=== PATIENT | male | born 1955 | race Caucasian/White ===

== ENCOUNTER 2016-09-17 21:46 | Inpatient (IN) | payer BC, MEDICARE ==
[~2016-09-17] VITALS: Ht 172.7 cm; Wt 104.1 kg
[2016-09-17 23:30] LABS: BASOPHILS 0.1 % (0.0-2.0); EOSINOPHILS 0.3 % (0-7); HEMATOCRIT 45.5 % (42.0-54.0); HEMOGLOBIN 15.4 g/dL (13.5-17.5); IMMATURE GRANULOCYTES 0.3 % (0-5); LYMPHOCYTES 13.9 % (15-50); MCH 30.4 pg (26.0-34.0); MCHC 33.8 g/dL (31.0-37.0); MCV 89.7 fL (80.0-100.0); MEAN PLATELET VOLUME 10.7 fL (7.4-10.4); MONOCYTES 12.8 % (2-11); NEUTROPHILS 72.6 % (40-80); RBC 5.07 10x6/uL (4.20-6.10); RDW 15.2 % (11.5-14.5); WBC 10.3 10x3/uL (4.8-10.8)
[2016-09-17 23:34] LABS: PLATELET COUNT 88 10x3/uL (130-400)
[2016-09-17 23:44] LABS: ALBUMIN 4.5 g/dL (3.4-5.0); BILIRUBIN - TOTAL 1.1 mg/dL (0.2-1.3); CALCIUM 10.4 mg/dL (8.5-10.1); CARBON DIOXIDE 28.3 mmol/L (21.0-32.0); CREATININE - SERUM 1.3 mg/dL (0.6-1.3); POTASSIUM - SERUM 4.3 mmol/L (3.5-5.1); PROTEIN - SERUM 8.6 g/dL (6.4-8.2)
[2016-09-18] MEDS ORDERED: REVATIO20 MG PO (03:34)
[2016-09-18] MEDS ORDERED: CELEXA10 MG PO (03:35)
[2016-09-18] MEDS ORDERED: DETROL LA4 MG PO (03:35)
[2016-09-18] MEDS ORDERED: PEPCID20 MG PO (03:37)
[2016-09-18] MEDS ORDERED: CHRONULAC30 ML PO (03:37)
[2016-09-18] MEDS ORDERED: PROTONIX20 MG PO (03:38)
[2016-09-18] MEDS ORDERED: ZOFRAN8 MG PO (03:38)
[2016-09-18 04:39] VITALS: BP 133/74
[2016-09-18 05:47] VITALS: BMI 32.0
--- NOTE | 2016-09-18 07:23 | NUR ---
PT LAYING DOWN IN BED SLEEPING NO S/S DISTRESS WILL CONT TO MONITOR.
[2016-09-18 08:00] VITALS: BP 110/72
[2016-09-18 11:25] LABS: APPEARANCE CLEAR (CLEAR); BILIRUBIN NEGATIVE (NEGATIVE); COLOR DK YELLOW (YELLOW); GLUCOSE 500 mg/dL (NEGATIVE); KETONE NEGATIVE (NEGATIVE); LEUKOCYTE ESTERASE TRACE (NEGATIVE); NITRITE NEGATIVE (NEGATIVE); PROTEIN NEGATIVE (NEGATIVE); UROBILINOGEN NORMAL (NORMAL)
[2016-09-18 11:31] LABS: BACTERIA FEW /hpf (NONE SEEN); EPITHELIAL CELLS 0-5 /hpf (0-5); RED CELLS - URINE OCC /hpf (0-5); WHITE CELLS - URINE 0-5 /hpf (0-5)
[2016-09-18 12:00] VITALS: BP 115/61
[2016-09-18 12:41] VITALS: Ht 172.7 cm; Wt 104.1 kg
--- NOTE | 2016-09-18 15:36 | NUR ---
PT WITH DARK BLOODY STOOL. ORDERED STOOL CULTURE AND SENT TO THE LAB TO CONFIRM. PT WITH SEVERE ABDOMINAL PAIN.
--- NOTE | 2016-09-18 15:49 | NUR ---
PT STOOL POSITIVE FOR BLOOD PAGED DR GARRISON.
--- NOTE | 2016-09-18 15:54 | NUR ---
DR GARRISON CALLED BACK AND I TOLD HIM ABOUT POSITIVE OCCULT STOOL. SAID HE WOULD BE UP TO SEE PT SOON.
[2016-09-18 16:27] VITALS: BP 136/98
--- NOTE | 2016-09-18 18:16 | NUR ---
PT SITTING UP IN BED DENIES NEEDS WILL CONT TO MONITOR.
[2016-09-18 18:27] LABS: BASOPHILS 0 % (0.0-2.0); EOSINOPHILS 0 % (0-7); HEMATOCRIT 38.5 % (42.0-54.0); HEMOGLOBIN 12.7 g/dL (13.5-17.5); IMMATURE GRANULOCYTES 0.3 % (0-5); MCH 29.7 pg (26.0-34.0); MCV 90.2 fL (80.0-100.0); MEAN PLATELET VOLUME 10.3 fL (7.4-10.4); MONOCYTES 5.1 % (2-11); NEUTROPHILS 88.6 % (40-80); RBC 4.27 10x6/uL (4.20-6.10); RDW 14.9 % (11.5-14.5)
--- NOTE | 2016-09-18 18:27 | CN ---
PATIENT NAME:AIXA LEGGETT JR MEDICAL RECORD: [id number] : 59 LOCATION:[facility] D.[id number] ADMIT DATE: 09/18/16 ACCOUNT: [id number] CONSULTING PHYSICIAN: CASEY ROGEL MD REFERRING PHYSICIAN: SULEMA GARRISON MD DATE OF CONSULTATION: 09/18/2016 Surgical consultation SURGEON: Casey Rogel MD REASON FOR CONSULTATION: Abdominal pain. HISTORY OF PRESENT ILLNESS: Mr. Leggett is a 61-year-old male who was admitted to the hospital last night for abdominal pain this morning. The patient tells me that he has had crampy and diffuse abdominal pain and body aches that lasts 3-4 days. He feels very dehydrated. The pain is associated with nausea and vomiting. He has tried to stay hydrated by drinking Gatorade and ____ staff nausea and vomiting. He has a history previously of episodes of diverticulitis. He had a long hepatitis C with cirrhosis. Currently, the patient's pain is markedly improved with IV fluid and IV narcotics. His nausea had improved. PAST MEDICAL HISTORY: Diverticulitis, hepatitis C, cirrhosis, history of stroke, history of hypothyroidism, and hypertension. Depression and anxiety. PAST SURGICAL HISTORY: Rotator cuff surgery, gallbladder surgery, and left thumb surgery. SOCIAL HISTORY: Former smoker. He is a nondrinker. He smokes marijuana occasionally. FAMILY HISTORY: No significant family history. ALLERGIES: MORPHINE. HOME MEDICATIONS: ____, Celexa, lactulose, Protonix, Zofran, Pepcid and Detrol-LA. REVIEW OF SYSTEMS: A 12-point review of systems was obtained, pertinent positive and negative as per the HPI. PHYSICAL EXAMINATION: VITAL SIGNS: Temperature 97.7, heart rate 48, respiratory rate 17, blood pressure 110/72, saturating 92% on 2 liters. GENERAL: This is an obese male in mild distress. EYES: Extraocular muscles are intact. EAR, NOSE, AND THROAT: Normal dentition. Mucous membranes moist. CARDIOVASCULAR: Normal sinus rhythm. PULMONARY: Clear auscultation bilaterally. ABDOMEN: Soft and mildly distended. No guarding. No rebound. No peritoneal signs. He has got some diffuse abdominal tenderness to palpation. SKIN: Warm and dry with normal turgor. EXTREMITIES: He has got lower extremity edema. NEUROLOGIC: GCS is 15 with no focal deficits. CONSULT REPORT [id number] AIXA LEGGETT JR LABORATORY DATA: Please see electronic medical record for full set of laboratory values. Labs were reviewed. IMAGING: CT abdomen and pelvis that was personally reviewed. The patient has focal segmental enteritis involving the small bowel, cirrhosis. IMPRESSION: A 61-year-old male with abdominal pain and enteritis. PLAN: 1. Clear liquid diet, IV fluids. 2. IV pain medications. 3. IV antiemetetics. 4. Serial abdominal exams. TRANSINT:[id number] Voice Confirmation ID: [id number] DOCUMENT ID: [id number] CASEY ROGEL MD at 1827 CC: [id number] DICTATION DATE: 09/18/16 0951 LEAD JAVA DEVELOPER ARCHITECT: 09/18/16 1134 ADM IN [place] [address] [place] [address]
[2016-09-18 18:28] LABS: PLATELET COUNT 56 10x3/uL (130-400); WBC 6.7 10x3/uL (4.8-10.8)
[2016-09-18 19:46] LABS: INR 1.19 (0.85-1.17)
[2016-09-18 21:20] VITALS: BP 125/62
--- NOTE | 2016-09-18 21:58 | NUR ---
HS MEDS GIVEN, INFORMED PT THAT A SECOND IV WILL HAVE TO BE STARTED TO INFUSE THE PROTONIX DRIP BECAUSE ITS NOT COMPATABLE WITH THE DERRICK BUILDER AND ANTIBIOTIC AT THE Y SITE IN THE TUBING.
--- NOTE | 2016-09-18 22:48 | NUR ---
SECOND IV SITED TO LEFT WRIST DUE TO IV MEDICATIONS UNCAPATABILITY AT Y SITE, 22 GAUGE, FIRST ATTEMPT BY DORIAN RN, PT TOLERATED WELL. PROTONIX DRIP AT 10 CC/HR TO LEFT WRIST. WILL CONT TO MONITOR.
[2016-09-19 00:30] VITALS: BP 151/84
--- NOTE | 2016-09-19 01:17 | NUR ---
IV TO RIGHT AC LEAKING, IV REMOVED, TIP INTACT. WILL RESITE TO INFUSE D5LR AND DILAUDID CALCINER OPERATOR.
--- NOTE | 2016-09-19 02:22 | NUR ---
IV RESITED TO LEFT FOREARM, 20 GAUGE, SECOND ATTEMPT, PT TOLERATED WELL. RESUMMED DILAUDID BOOKING MANAGER AND D5LR AT 100.
[2016-09-19 04:30] VITALS: BP 113/68
[2016-09-19 05:09] LABS: BASOPHILS 0 % (0.0-2.0); EOSINOPHILS 0 % (0-7); HEMATOCRIT 37.4 % (42.0-54.0); HEMOGLOBIN 12.1 g/dL (13.5-17.5); IMMATURE GRANULOCYTES 0.2 % (0-5); LYMPHOCYTES 7.4 % (15-50); MCH 29.5 pg (26.0-34.0); MCHC 32.4 g/dL (31.0-37.0); MCV 91.2 fL (80.0-100.0); MEAN PLATELET VOLUME 11.6 fL (7.4-10.4); MONOCYTES 5.5 % (2-11); NEUTROPHILS 86.9 % (40-80); PLATELET COUNT 61 10x3/uL (130-400); RDW 14.9 % (11.5-14.5); WBC 5.4 10x3/uL (4.8-10.8)
--- NOTE | 2016-09-19 07:00 | NUR ---
RECEIVED REPORT. ASSUMED CARE OF PATIENT. RESTING IN BED WITH EYES OPEN. RESP EVEN AND UNLABORED. PATIENT REPORT MEDIA PRODUCTION OPERATOR PUMP CONTROLLING ABD PAIN. DENIES NEEDS AT THIS TIME. CALL LIGHT WITHIN REACH. NO DISTRESS.
[2016-09-19 09:10] VITALS: BP 113/62
[2016-09-19 12:00] VITALS: BP 111/62
--- NOTE | 2016-09-19 12:10 | NUR ---
RESTING IN BED WITH EYES OPEN. TOLERATING NOON CLEAR LIQUID DIET WELL. CALL LIGHT WITHIN REACH. FAMILY AT BEDSIDE. NO DISTRESS. DENIES NEEDS.
[2016-09-19 16:00] VITALS: BP 103/55
[2016-09-19 18:14] LABS: BASOPHILS 0 % (0.0-2.0); EOSINOPHILS 0 % (0-7); HEMATOCRIT 36.7 % (42.0-54.0); HEMOGLOBIN 11.7 g/dL (13.5-17.5); IMMATURE GRANULOCYTES 0.5 % (0-5); LYMPHOCYTES 5.6 % (15-50); MCH 29.3 pg (26.0-34.0); MCHC 31.9 g/dL (31.0-37.0); MEAN PLATELET VOLUME 10.6 fL (7.4-10.4); MONOCYTES 4.5 % (2-11); NEUTROPHILS 89.4 % (40-80); PLATELET COUNT 60 10x3/uL (130-400); RBC 3.99 10x6/uL (4.20-6.10); RDW 15.2 % (11.5-14.5); WBC 5.5 10x3/uL (4.8-10.8)
--- NOTE | 2016-09-19 18:59 | NUR ---
REPORT GIVEN TO ONCOMING NURSE. NO DISTRESS. CALL LIGHT WITHIN REACH.
--- NOTE | 2016-09-19 19:03 | NUR ---
SITTING UP IN BED, AAXO3, SKIN WARM AND DRY, RESP UNLABORED, IV PATENT TO LEFT FOREARM X2, STOOL SPECIMAN COLLECTED AND SENT TO LAB, O2@2LNC, NO DISTRESS NOTED
[2016-09-19 20:19] VITALS: BP 106/58
[2016-09-20 00:06] VITALS: BP 102/73
--- NOTE | 2016-09-20 05:54 | NUR ---
UP TO SHOWER WITH LINEN CHANGE, BBEE WELL
[2016-09-20 05:55] VITALS: BP 107/67
[2016-09-20 06:57] LABS: BASOPHILS 0 % (0.0-2.0); EOSINOPHILS 0 % (0-7); HEMATOCRIT 39.8 % (42.0-54.0); HEMOGLOBIN 12.6 g/dL (13.5-17.5); IMMATURE GRANULOCYTES 0.4 % (0-5); LYMPHOCYTES 6.8 % (15-50); MCH 29.2 pg (26.0-34.0); MCHC 31.7 g/dL (31.0-37.0); MCV 92.1 fL (80.0-100.0); MEAN PLATELET VOLUME 10.7 fL (7.4-10.4); MONOCYTES 3.9 % (2-11); NEUTROPHILS 88.9 % (40-80); RBC 4.32 10x6/uL (4.20-6.10); RDW 15.2 % (11.5-14.5)
[2016-09-20 07:00] LABS: PLATELET COUNT 83 10x3/uL (130-400); WBC 7.6 10x3/uL (4.8-10.8)
[2016-09-20 07:02] LABS: ALBUMIN 3.4 g/dL (3.4-5.0); ALKALINE PHOSPHATASE 54 U/L (46-116); ALT (SGPT) 34 U/L (10-68); CALC OSMOLALITY 287 mosm/kg (275-300); CALCIUM 7.9 mg/dL (8.5-10.1); CARBON DIOXIDE 24.1 mmol/L (21.0-32.0); CHLORIDE - SERUM 106 mmol/L (98-107); POTASSIUM - SERUM 4.1 mmol/L (3.5-5.1); PROTEIN - SERUM 6.8 g/dL (6.4-8.2); SODIUM 141 mmol/L (136-145); UREA NITROGEN 20 mg/dL (7-18); eGFR NON AFRICAN AMERICAN 81 mL/min (90-120)
[2016-09-20 07:03] LABS: GLUCOSE 177 mg/dL (74-106)
[2016-09-20 07:33] LABS: PLATELET ESTIMATE DECREASED
[2016-09-20 08:25] VITALS: BP 116/67
--- NOTE | 2016-09-20 09:39 | NUR ---
RESP UL ON 02 2L NC. IV PATENT. STEAM TENDER FOR PAIN CONTROL NOTED. NPO FOR EGD. WILL CONT. PLAN OF CARE.
[2016-09-20 12:53] VITALS: BP 115/71
--- NOTE | 2016-09-20 13:05 | NUR ---
Nutrition follow-up: Pt NPO for EGD today Labs reviewed Wt: 209# RDN will monitor patients diet advancement and tolerance.
--- NOTE | 2016-09-20 13:22 | NUR ---
LEAVING FOR EGD BY BED.
--- NOTE | 2016-09-20 16:28 | NUR ---
Patient Name: AIXA LEGGETT Admission Status: ER Accout number: [id number] Admission Date: 09-18-2016 : 1955 Admission Diagnosis: Attending: GUNNER Current LOS: 2 Anticipated DC Date: Planned Disposition: Home Primary Insurance: [employer] OUT OF STATE Discharge Planning Comments: * Is the patient Alert and Oriented? Yes 0 * How many steps to enter\exit or inside your home? 5-5 0 * PCP DR. GARRISON 0 * Pharmacy [facility] 0 * Preadmission Environment Home with Family 0 * ADLs Independent 0 * Equipment None 0 * Other Equipment NO MEDICAL EQUIPMENT PROVIDER 0 * List name and contact numbers for known caregivers / representatives who currently or will assist patient after discharge: MALINDA LEGGETT, SPOUSE, 0 * Community resources currently utilized None 0 * Please name any agencies selected above. NONE 0 * Additional services required to return to the preadmission environment? No 0 * Can the patient safely return to the preadmission environment? Yes 0 * Has this patient been hospitalized within the prior 30 days at any hospital? No 0 CM MET WITH PT AND SPOUSE IN ROOM TO DISCUSS DISCHARGE PLANNING AND NEEDS. PT REPORTS LIVING AT HOME INDEPENDENTLY WITH SPOUSE. PT HAS NO MEDICAL EQUIPMENT AND NO OUTSIDE SERVICES ASSISTING IN THE HOME. CM DISCUSSED AVAILABILITY OF HOME HEALTH, REHAB SERVICES AND MEDICAL EQUIPMENT. PT DENIES DISCHARGE NEEDS, REPORTS HIS SPOUSE WILL PICK HIM UP FOR DISCHARGE HOME. PT PLANS TO DISCHARGE HOME, NO ANTICIPATED NEEDS. CM TO FOLLOW AND ASSIST NEEDED. Geriatric Nurse Practitioner: Joni Delgado
[2016-09-20 16:49] VITALS: BP 162/75
[2016-09-20 18:53] LABS: BASOPHILS 0 % (0.0-2.0); EOSINOPHILS 0 % (0-7); HEMATOCRIT 39.8 % (42.0-54.0); HEMOGLOBIN 12.9 g/dL (13.5-17.5); IMMATURE GRANULOCYTES 1.6 % (0-5); LYMPHOCYTES 3.6 % (15-50); MCH 29.9 pg (26.0-34.0); MCHC 32.4 g/dL (31.0-37.0); MCV 92.1 fL (80.0-100.0); MEAN PLATELET VOLUME 10.3 fL (7.4-10.4); MONOCYTES 7.8 % (2-11); PLATELET COUNT 69 10x3/uL (130-400); RBC 4.32 10x6/uL (4.20-6.10); RDW 15.4 % (11.5-14.5); WBC 7.3 10x3/uL (4.8-10.8)
--- NOTE | 2016-09-20 19:03 | NUR ---
SITTING UP IN BED, AAOX3, SKIN WARM AND DRY, RESP UNLABORED, IV PATENT TO LEFT FOREARM, VERBALIZES UNDERSTANDING OF COLONOSCOPY PREP, RADHALY AT BEDSIDE, WILL MONITOR
[2016-09-20 21:47] VITALS: BP 149/82
[2016-09-21 01:44] VITALS: BP 122/72
--- NOTE | 2016-09-21 01:46 | NUR ---
PT LAYING IN BED NO DISTRESS OBSERVED CALL LIGHT IN REACH SRX2 BED LOW AND LOCKED WILL MONITOR
--- NOTE | 2016-09-21 05:31 | NUR ---
RESTING QUIETLY IN BED, NO DISTRESS NOTED
[2016-09-21 06:08] LABS: BASOPHILS 0 % (0.0-2.0); EOSINOPHILS 0 % (0-7); HEMATOCRIT 36.2 % (42.0-54.0); HEMOGLOBIN 11.4 g/dL (13.5-17.5); LYMPHOCYTES 9.8 % (15-50); MCH 29.1 pg (26.0-34.0); MCHC 31.5 g/dL (31.0-37.0); MCV 92.3 fL (80.0-100.0); MEAN PLATELET VOLUME 10.8 fL (7.4-10.4); MONOCYTES 7.4 % (2-11); NEUTROPHILS 81.8 % (40-80); PLATELET COUNT 59 10x3/uL (130-400); RBC 3.92 10x6/uL (4.20-6.10); RDW 15.3 % (11.5-14.5)
[2016-09-21 06:10] VITALS: BP 149/76
[2016-09-21 06:26] LABS: ALBUMIN 2.9 g/dL (3.4-5.0); ALKALINE PHOSPHATASE 43 U/L (46-116); ALT (SGPT) 29 U/L (10-68); CALC OSMOLALITY 287 mosm/kg (275-300); CALCIUM 7.2 mg/dL (8.5-10.1); CARBON DIOXIDE 28.5 mmol/L (21.0-32.0); CHLORIDE - SERUM 106 mmol/L (98-107); CREATININE - SERUM 0.8 mg/dL (0.6-1.3); GLUCOSE 201 mg/dL (74-106); POTASSIUM - SERUM 4.4 mmol/L (3.5-5.1); PROTEIN - SERUM 5.9 g/dL (6.4-8.2); SODIUM 140 mmol/L (136-145); UREA NITROGEN 20 mg/dL (7-18); eGFR NON AFRICAN AMERICAN > 90 mL/min (90-120)
[2016-09-21 08:00] VITALS: BP 133/71
--- NOTE | 2016-09-21 09:31 | NUR ---
IV PATENT. AT BS. NPO FOR COLONOSCOPY. WILL CONT. PLAN OF CARE.
--- NOTE | 2016-09-21 10:43 | NUR ---
PRE-OPS GIVEN. TO GI LAB BY BED.
[2016-09-21 16:00] VITALS: BP 129/69
[2016-09-21 17:14] LABS: BASOPHILS 0 % (0.0-2.0); EOSINOPHILS 0 % (0-7); HEMATOCRIT 35.5 % (42.0-54.0); HEMOGLOBIN 11.3 g/dL (13.5-17.5); IMMATURE GRANULOCYTES 1.2 % (0-5); LYMPHOCYTES 7.4 % (15-50); MCH 29.4 pg (26.0-34.0); MCHC 31.8 g/dL (31.0-37.0); MCV 92.4 fL (80.0-100.0); MEAN PLATELET VOLUME 10.4 fL (7.4-10.4); MONOCYTES 8.6 % (2-11); NEUTROPHILS 82.8 % (40-80); PLATELET COUNT 55 10x3/uL (130-400); RBC 3.84 10x6/uL (4.20-6.10); RDW 15.2 % (11.5-14.5); WBC 3.4 10x3/uL (4.8-10.8)
--- NOTE | 2016-09-21 19:57 | NUR ---
PT ROUNDINDING COMPLETED PT UP AND AMBULATINGIN BLOOM WAYS NO DISTRESS OBSERVED RESPERATIONS EVEN AND UNLABORED ON ROOM AIR WILL MONITOR
[2016-09-21 20:11] VITALS: BP 130/76
--- NOTE | 2016-09-21 20:45 | NUR ---
SITTING UP IN BED, AAXO3, SKIN WARM AND DRY, IV PATENT TO LEFT FOREARM, COMPLAINING OF ABDOMINAL CRAMPING, ENCOURAGED TO USE INTERNAL CONTROL SPECIALIST, NO DISTRESS NOTED
[2016-09-22 02:18] VITALS: BP 136/76
[2016-09-22 03:09] LABS: OVA + PARASITE EXAM Final report (())
--- NOTE | 2016-09-22 06:01 | NUR ---
RESTING QUIETLY IN BED, NO DISTRESS NOTED
[2016-09-22 06:42] VITALS: BP 167/83
[2016-09-22 07:22] LABS: BASOPHILS 0 % (0.0-2.0); EOSINOPHILS 0 % (0-7); HEMATOCRIT 39.8 % (42.0-54.0); HEMOGLOBIN 12.4 g/dL (13.5-17.5); IMMATURE GRANULOCYTES 0.9 % (0-5); LYMPHOCYTES 7.3 % (15-50); MCHC 31.2 g/dL (31.0-37.0); MEAN PLATELET VOLUME 10.6 fL (7.4-10.4); MONOCYTES 11.3 % (2-11); NEUTROPHILS 80.5 % (40-80); PLATELET COUNT 60 10x3/uL (130-400); RBC 4.28 10x6/uL (4.20-6.10); WBC 3.3 10x3/uL (4.8-10.8)
[2016-09-22 08:00] VITALS: BP 135/76
[2016-09-22] MEDS ORDERED: REVATIO20 MG PO (08:30)
[2016-09-22] MEDS ORDERED: CELEXA10 MG PO (08:30)
[2016-09-22] MEDS ORDERED: PROTONIX20 MG PO (08:31)
[2016-09-22] MEDS ORDERED: ZOFRAN8 MG PO (08:31)
[2016-09-22] MEDS ORDERED: CHRONULAC30 ML PO (08:31)
[2016-09-22] MEDS ORDERED: DETROL LA4 MG PO (08:32)
[2016-09-22 11:50] VITALS: BP 129/68
[2016-09-22 15:28] VITALS: BP 147/84
== END 2016-09-22 18:01 | disposition home or self-care (01) | DRG 369 ==
LOC: D.ER 21:46 → D.M2 09-18 02:56
PROVIDERS: Emergency Medicine; Internal Medicine Gastroenterology; Physician Assistant; ADMIT Legal Medicine
PROC: 0DB58ZX Excision of Esophagus, Via Natural or Artificial Opening Endoscopic, Diagnostic (ICD-10-PCS; 2016-09-20)
PROC: 06L34CZ Occlusion of Esophageal Vein with Extraluminal Device, Percutaneous Endoscopic Approach (ICD-10-PCS; principal; 2016-09-20 10:00)
PROC: 0DBN8ZZ Excision of Sigmoid Colon, Via Natural or Artificial Opening Endoscopic (ICD-10-PCS; 2016-09-21)
DX: I85.00 Esophageal varices without bleeding (principal); K57.92 Diverticulitis of intestine, part unspecified, without perforation or abscess without bleeding; K52.9 Noninfective gastroenteritis and colitis, unspecified; K74.60 Unspecified cirrhosis of liver; B19.20 Unspecified viral hepatitis C without hepatic coma; K29.70 Gastritis, unspecified, without bleeding; D12.5 Benign neoplasm of sigmoid colon; K64.8 Other hemorrhoids; D69.6 Thrombocytopenia, unspecified; D73.1 Hypersplenism; I10 Essential (primary) hypertension; E03.9 Hypothyroidism, unspecified; F41.8 Other specified anxiety disorders; Z86.73 Personal history of transient ischemic attack (TIA), and cerebral infarction without residual deficits

== ENCOUNTER 2016-09-25 10:35 | Emergency (ER) | payer BC, MEDICARE ==
[2016-09-18 12:41] VITALS: BMI 31.9
[~2016-09-25 10:35] MED LIST: CELEXA10 MG PO; CHRONULAC30 ML PO; DETROL LA4 MG PO; PEPCID20 MG PO; PROTONIX20 MG PO; REVATIO20 MG PO; ZOFRAN8 MG PO
[2016-09-25 11:35] LABS: APPEARANCE HAZY (CLEAR); BACTERIA MODERATE /hpf (NONE SEEN); BILIRUBIN NEGATIVE (NEGATIVE); COLOR ORANGE (YELLOW); GLUCOSE NEGATIVE (NEGATIVE); KETONE NEGATIVE (NEGATIVE); LEUKOCYTE ESTERASE TRACE (NEGATIVE); MUCUS >1+ /lpf (NONE SEEN); NITRITE NEGATIVE (NEGATIVE); PROTEIN TRACE mg/dL (NEGATIVE); RED CELLS - URINE 0-5 /hpf (0-5); SPECIFIC GRAVITY 1.025 (1.005-1.020); UROBILINOGEN NORMAL (NORMAL)
[2016-09-25 12:52] LABS: CREATININE - SERUM 1.2 mg/dL (0.6-1.3)
[2016-09-25 12:58] LABS: POTASSIUM - SERUM 2.9 mmol/L (3.5-5.1)
== END 2016-09-25 13:25 | disposition home or self-care (01) ==
LOC: D.ER 10:35
PROVIDERS: Emergency Medicine
DX: R82.71 Bacteriuria (principal); E87.6 Hypokalemia; E86.0 Dehydration; K74.60 Unspecified cirrhosis of liver; B19.20 Unspecified viral hepatitis C without hepatic coma

== ENCOUNTER 2018-03-10 19:29 | Observation (INO) | payer BC, MEDICARE ==
[~2018-03-10] VITALS: Ht 172.7 cm; Wt 75.9 kg
[2018-03-10] MEDS ORDERED: FLOMAX0.4 MG PO (19:41)
[2018-03-10 20:19] LABS: BASOPHILS 0.2 % (0-2); EOSINOPHILS 1.4 % (0-7); HEMATOCRIT 48.6 % (42.0-54.0); HEMOGLOBIN 16.6 g/dL (13.5-17.5); IMMATURE GRANULOCYTES 0.4 % (0-5); LYMPHOCYTES 12.3 % (15-50); MCH 29.6 pg (26.0-34.0); MCHC 34.2 g/dL (31.0-37.0); MCV 86.6 fL (80.0-100.0); MEAN PLATELET VOLUME 10.8 fL (7.4-10.4); MONOCYTES 10.1 % (2-11); NEUTROPHILS 75.6 % (40-80); RBC 5.61 10x6/uL (4.20-6.10); RDW 15.1 % (11.5-14.5); WBC 9.4 10x3/uL (4.8-10.8)
[2018-03-10 20:20] LABS: PLATELET COUNT 129 10x3/uL (130-400)
[2018-03-10 20:34] LABS: ALBUMIN 4.5 g/dL (3.4-5.0); ANION GAP 16.9 mmol/L (8-16); BILIRUBIN - TOTAL 0.64 mg/dL (0.2-1.3); CALCIUM 10.3 mg/dL (8.5-10.1); CARBON DIOXIDE 25.8 mmol/L (21.0-32.0); CREATININE - SERUM 1.4 mg/dL (0.6-1.3); POTASSIUM - SERUM 5.7 mmol/L (3.5-5.1); PROTEIN - SERUM 9.2 g/dL (6.4-8.2)
[2018-03-10 21:06] LABS: APPEARANCE CLEAR (CLEAR); BILIRUBIN NEGATIVE (NEGATIVE); COLOR YELLOW (YELLOW); GLUCOSE 100 mg/dL (NEGATIVE); KETONE NEGATIVE (NEGATIVE); NITRITE NEGATIVE (NEGATIVE); PROTEIN NEGATIVE (NEGATIVE); UROBILINOGEN NORMAL (NORMAL)
[2018-03-11 04:00] VITALS: BP 112/73
[2018-03-11] MEDS ORDERED: ACETAMINOPHEN325 MG PO (05:01)
[2018-03-11] MEDS ORDERED: IBUPROFEN200 MG PO (05:02)
[2018-03-11] MEDS ORDERED: CHRONULAC30 ML PO (05:04)
[2018-03-11 05:30] LABS: BASOPHILS 0.4 % (0-2); EOSINOPHILS 3.8 % (0-7); HEMOGLOBIN 14.6 g/dL (13.5-17.5); IMMATURE GRANULOCYTES 0.4 % (0-5); MCH 29.3 pg (26.0-34.0); MCHC 33.2 g/dL (31.0-37.0); MCV 88.2 fL (80.0-100.0); MEAN PLATELET VOLUME 11.2 fL (7.4-10.4); MONOCYTES 12.1 % (2-11); NEUTROPHILS 66.3 % (40-80); RBC 4.99 10x6/uL (4.20-6.10); RDW 15.3 % (11.5-14.5); WBC 7.1 10x3/uL (4.8-10.8)
[2018-03-11 05:44] LABS: PLATELET COUNT 91 10x3/uL (130-400)
[2018-03-11 05:56] LABS: ALBUMIN 3.6 g/dL (3.4-5.0); ALKALINE PHOSPHATASE 124 U/L (46-116); BILIRUBIN - TOTAL 0.93 mg/dL (0.2-1.3); CALCIUM 8.7 mg/dL (8.5-10.1); CARBON DIOXIDE 29.7 mmol/L (21.0-32.0); CHLORIDE - SERUM 101 mmol/L (98-107); PROTEIN - SERUM 7.3 g/dL (6.4-8.2); SODIUM 132 mmol/L (136-145); UREA NITROGEN 32 mg/dL (7-18)
[2018-03-11 06:01] LABS: ALT (SGPT) 63 U/L (10-68); CALC OSMOLALITY 272 mosm/kg (275-300); GLUCOSE 116 mg/dL (74-106); POTASSIUM - SERUM 4.8 mmol/L (3.5-5.1); eGFR NON AFRICAN AMERICAN 81 mL/min (90-120)
[2018-03-11 07:34] VITALS: BP 120/85; Ht 172.7 cm; Wt 75.9 kg
[2018-03-11 09:13] VITALS: BP 131/65
[2018-03-11] MEDS ORDERED: AMITIZA24 MCG PO (10:40)
[2018-03-11] MEDS ORDERED: CITRATE OF MAG300 ML PO (10:41)
[2018-03-11 12:34] VITALS: BP 104/66
== END 2018-03-11 13:47 | disposition home or self-care (01) ==
LOC: D.ER 19:29 → D.M2 03-11 00:07 → D.EDHOLD 03-11 00:07 → OBSVTIME 03-11 00:07 → D.EDHOLD 03-11 00:07 → D.M2 03-11 01:43
PROVIDERS: Family Medicine
DX: K74.60 Unspecified cirrhosis of liver (principal); K75.9 Inflammatory liver disease, unspecified; K59.00 Constipation, unspecified; R59.9 Enlarged lymph nodes, unspecified; E87.5 Hyperkalemia; Z86.73 Personal history of transient ischemic attack (TIA), and cerebral infarction without residual deficits; I10 Essential (primary) hypertension; F41.9 Anxiety disorder, unspecified; F32.9 Major depressive disorder, single episode, unspecified; I45.10 Unspecified right bundle-branch block

== ENCOUNTER → 2019-01-08 13:49 | Outpatient (CLI) | payer BC, MEDICARE ==
[2018-03-11 07:34] VITALS: BMI 25.4
[~2019-01-08 13:49] MED LIST changes: +ACETAMINOPHEN325 MG PO; +AMITIZA24 MCG PO; +CITRATE OF MAG300 ML PO; +FLOMAX0.4 MG PO; +IBUPROFEN200 MG PO
[2019-01-08 14:14] LABS: ALBUMIN 3.5 g/dL (3.4-5.0); ALKALINE PHOSPHATASE 121 U/L (46-116); ALT (SGPT) 33 U/L (10-68); AMYLASE - SERUM 59 U/L (25-115); CALC OSMOLALITY 273 mosm/kg (275-300); CALCIUM 8.6 mg/dL (8.5-10.1); CARBON DIOXIDE 23.2 mmol/L (21.0-32.0); CHLORIDE - SERUM 99 mmol/L (98-107); CREATININE - SERUM 0.9 mg/dL (0.6-1.3); GAMMA GT 77 U/L (5-85); GLUCOSE 176 mg/dL (74-106); LIPASE 139 U/L (73-393); POTASSIUM - SERUM 3.8 mmol/L (3.5-5.1); SODIUM 134 mmol/L (136-145); UREA NITROGEN 19 mg/dL (7-18); eGFR NON AFRICAN AMERICAN > 90 mL/min (90-120)
[2019-01-08 14:46] LABS: BASOPHILS 0.1 % (0-2); EOSINOPHILS 0 % (0-7); HEMATOCRIT 38.1 % (42.0-54.0); HEMOGLOBIN 12.8 g/dL (13.5-17.5); IMMATURE GRANULOCYTES 0.3 % (0-5); LYMPHOCYTES 4.4 % (15-50); MCH 29.3 pg (26.0-34.0); MCHC 33.6 g/dL (31.0-37.0); MCV 87.2 fL (80.0-100.0); MEAN PLATELET VOLUME 11.4 fL (7.4-10.4); MONOCYTES 7.9 % (2-11); NEUTROPHILS 87.3 % (40-80); RBC 4.37 10x6/uL (4.20-6.10); RDW 15.2 % (11.5-14.5); WBC 7.3 10x3/uL (4.8-10.8)
[2019-01-08 14:55] LABS: PLATELET COUNT 61 10x3/uL (130-400)
[2019-01-08 17:19] LABS: PLATELET ESTIMATE DECREASED
== END | disposition home or self-care (01) ==
LOC: D.LABREF 13:49
PROVIDERS: ATTEND Legal Medicine
DX: R50.9 Fever, unspecified (principal); R11.2 Nausea with vomiting, unspecified; R19.7 Diarrhea, unspecified

== ENCOUNTER → 2019-01-09 19:07 | Outpatient (CLI) | payer BC, MEDICARE ==
[2018-03-11 07:34] VITALS: BMI 25.4
[2019-01-09 19:41] LABS: HEMOGLOBIN 12.6 g/dL (13.5-17.5); MCH 29.3 pg (26.0-34.0); MCHC 33.2 g/dL (31.0-37.0); MCV 88.4 fL (80.0-100.0); PLATELET COUNT 60 10x3/uL (130-400); RDW 15.9 % (11.5-14.5)
[2019-01-09 19:45] LABS: WBC 2.7 10x3/uL (4.8-10.8)
[2019-01-09 20:07] LABS: LYMPHOCYTES 16 % (15-50); NEUTROPHILS 80 % (40-80)
[2019-01-09 20:08] LABS: PLATELET ESTIMATE NORMAL
== END | disposition home or self-care (01) ==
LOC: D.LABREF 19:07
PROVIDERS: ATTEND Legal Medicine
DX: R50.9 Fever, unspecified (principal)

== ENCOUNTER → 2019-01-16 16:40 | Outpatient (CLI) | payer BC, MEDICARE ==
[2018-03-11 07:34] VITALS: BMI 25.4
== END | disposition home or self-care (01) ==
LOC: D.RAD 16:40
DX: R50.9 Fever, unspecified (principal); R05 Cough

== ENCOUNTER 2019-01-25 08:47 | Inpatient (IN) | payer BC, MEDICARE ==
[~2019-01-25] VITALS: Ht 172.7 cm; Wt 78.0 kg
[2019-01-25] MEDS ORDERED: OMEPRAZOLE20 M1 PO (10:12)
[2019-01-25 10:23] VITALS: BP 127/84; BMI 26.2
[2019-01-25 11:21] VITALS: BP 119/80
[2019-01-25 11:43] LABS: BASOPHILS 0.3 % (0-2); EOSINOPHILS 2.2 % (0-7); HEMATOCRIT 36.1 % (42.0-54.0); HEMOGLOBIN 11.9 g/dL (13.5-17.5); IMMATURE GRANULOCYTES 0.3 % (0-5); LYMPHOCYTES 12.6 % (15-50); MCH 28.9 pg (26.0-34.0); MCV 87.6 fL (80.0-100.0); MONOCYTES 9.1 % (2-11); NEUTROPHILS 75.5 % (40-80); PLATELET COUNT 58 10x3/uL (130-400); RBC 4.12 10x6/uL (4.20-6.10); RDW 15.8 % (11.5-14.5); WBC 3.6 10x3/uL (4.8-10.8)
[2019-01-25 12:00] LABS: ALBUMIN 3.3 g/dL (3.4-5.0); ALKALINE PHOSPHATASE 105 U/L (46-116); ALT (SGPT) 21 U/L (10-68); BILIRUBIN - TOTAL 0.52 mg/dL (0.2-1.3); CALC OSMOLALITY 287 mosm/kg (275-300); CALCIUM 8.8 mg/dL (8.5-10.1); CARBON DIOXIDE 26.2 mmol/L (21.0-32.0); CHLORIDE - SERUM 105 mmol/L (98-107); CREATININE - SERUM 0.8 mg/dL (0.6-1.3); GLUCOSE 187 mg/dL (74-106); POTASSIUM - SERUM 4.2 mmol/L (3.5-5.1); PROTEIN - SERUM 6.6 g/dL (6.4-8.2); SODIUM 141 mmol/L (136-145); UREA NITROGEN 19 mg/dL (7-18); eGFR NON AFRICAN AMERICAN > 90 mL/min (90-120)
[2019-01-25 15:34] VITALS: BP 127/83
[2019-01-25 17:08] LABS: APPEARANCE CLEAR (CLEAR); BILIRUBIN NEGATIVE (NEGATIVE); COLOR YELLOW (YELLOW); GLUCOSE NEGATIVE (NEGATIVE); KETONE NEGATIVE (NEGATIVE); NITRITE NEGATIVE (NEGATIVE); PROTEIN NEGATIVE (NEGATIVE); UROBILINOGEN NORMAL (NORMAL)
--- NOTE | 2019-01-25 19:43 | NUR ---
GREETED PATIENT AND INTRODUCED MYSELF HIS NURSE. PATIENT IS LAYING IN BED IN SUPINE POSITION. FAMILY MEMBER AT BEDSIDE. DENIES ANY NEEDS AT THIS TIME. CALL LIGHT IN REACH.
[2019-01-25 20:04] VITALS: BP 108/71
[2019-01-25 23:54] VITALS: BP 110/74
[2019-01-26 03:43] VITALS: BP 109/73
--- NOTE | 2019-01-26 06:41 | NUR ---
PAGED DR. GARRISON LEFT PHONE # TO CALL BACK. ANSWERING SERVICE SAID THAT DR. WHALEY WAS TEST AND TURN UP TECHNICIAN AND THAT SHE WOULD PAGE HIM.
--- NOTE | 2019-01-26 06:45 | NUR ---
SPOKE WITH TRACY AT DR. COMBS OFFICE AND TOLD HIM THAT PATIENT HAD CRITICAL AMMONIA OF 63. TRACY STATED THAT HE WOULD BE MAKING ROUNDS AND WOULD ADDRESS THE AMMONIA ISSUE ONCE HE REACHED THE UNIT.
[2019-01-26 06:50] LABS: ALBUMIN 3.3 g/dL (3.4-5.0); ALKALINE PHOSPHATASE 100 U/L (46-116); ALT (SGPT) 26 U/L (10-68); BILIRUBIN - TOTAL 0.88 mg/dL (0.2-1.3); CALCIUM 8.6 mg/dL (8.5-10.1); CARBON DIOXIDE 26.4 mmol/L (21.0-32.0); CHLORIDE - SERUM 107 mmol/L (98-107); CREATININE - SERUM 0.7 mg/dL (0.6-1.3); PROTEIN - SERUM 6.8 g/dL (6.4-8.2); SODIUM 142 mmol/L (136-145); UREA NITROGEN 18 mg/dL (7-18); eGFR NON AFRICAN AMERICAN > 90 mL/min (90-120)
[2019-01-26 06:53] LABS: CALC OSMOLALITY 285 mosm/kg (275-300); GLUCOSE 119 mg/dL (74-106)
[2019-01-26 06:57] LABS: INR 1.12 (0.85-1.17); PROTIME 13.9 SECONDS (11.6-15.0)
[2019-01-26 07:01] LABS: BASOPHILS 0.3 % (0-2); EOSINOPHILS 2.6 % (0-7); HEMATOCRIT 38.7 % (42.0-54.0); HEMOGLOBIN 12.7 g/dL (13.5-17.5); IMMATURE GRANULOCYTES 0.6 % (0-5); LYMPHOCYTES 16.1 % (15-50); MCH 28.9 pg (26.0-34.0); MCHC 32.8 g/dL (31.0-37.0); MCV 88.2 fL (80.0-100.0); MONOCYTES 10.6 % (2-11); NEUTROPHILS 69.8 % (40-80); PLATELET COUNT 69 10x3/uL (130-400); RBC 4.39 10x6/uL (4.20-6.10); RDW 15.8 % (11.5-14.5); WBC 3.4 10x3/uL (4.8-10.8)
--- NOTE | 2019-01-26 07:05 | NUR ---
INITIAL ROUNDING, PATIENT IS ASLEEP ON HIS RIGHT SIDE. NO S/S OF DISTRESS, LIGHTS AND TV OFF. CALL LIGHT IN REACH
[2019-01-26 08:32] VITALS: BP 132/81
[2019-01-26 09:36] LABS: PLATELET ESTIMATE DECREASED
[2019-01-26 09:37] LABS: ANISOCYTOSIS OCC; ROULEAUX OCC
[2019-01-26 11:44] VITALS: Ht 172.7 cm; Wt 78.0 kg
[2019-01-26 12:30] VITALS: BP 133/92
[2019-01-26 16:29] VITALS: BP 107/72
--- NOTE | 2019-01-26 20:10 | NUR ---
EVENING ROUNDS COMPLETED. REPORT RECEIVED. PT SITTING UP IN BED WITH EYES OPEN, RR EVEN AND UNLABORED. BED IN LOW POSITION. NO S/S OF DISTRESS NOTED. INTRODUCED SELF TO PT. PT STATES HIS TV IS NO LONGER WORKING PROPERLY, SENT A PAGE TO [email or web address]. CURRENTLY AWAITING FOLLOW UP. PT DENIES FURTHER NEEDS AT THIS TIME. CALL LIGHT IN REACH. WILL CTM.
[2019-01-27 00:50] VITALS: BP 104/59
[2019-01-27 04:05] VITALS: BP 118/69
--- NOTE | 2019-01-27 06:43 | NUR ---
I have reviewed this patient and I concur with the Shift Assessment completed by the Licensed Practical Nurse today this shift.
--- NOTE | 2019-01-27 08:25 | NUR ---
AAOX4. ON ROOM AIR, IV TO RIGHT FOREARM, SALINE LOCKED, AMBULATORY, GLASSES PRESENT, SLIGHT ABD DISTENTION TO RIGHT AND LEFT SIDES, DENIES ANY TENDERNESS OR PAIN, AFEBRILE, 98.1, ORAL, DENIES ANY CURRENT NEEDS OR DISCOMFORTS, BED LOWERED AND LOCKED, CALL LIGHT WITHIN REACH. CPOC
[2019-01-27 09:05] VITALS: BP 111/71
[2019-01-27 12:56] VITALS: BP 119/78
--- NOTE | 2019-01-27 13:00 | NUR ---
SPOKE WITH TRACY BENITES APRN IN REGARDS TO RECENT CT SCAN OF PEVIS AND ABD, ACKOWLEDGED INFORMATION, NO FURTHER ORDERS GIVEN AT THIS TIME.
--- NOTE | 2019-01-27 15:35 | NUR ---
AAOX4. AMBULATED IN HALLWAY WITH , ON ROOM AIR, IV PATENT TO RIGHT FOREARM, DENIES ANY CURRENT NEEDS OR DISCOMFORTS, BED LOWERED AND LOCKED, CALL LIGHT WITHIN REACH. CPOC
[2019-01-27 16:00] VITALS: BP 126/83
--- NOTE | 2019-01-27 19:09 | NUR ---
PATIENT RESTING IN BED WITH NO S/S OF DISTRESS AND DENIES NEEDS AT THIS TIME. BED IN LOWEST POSITION AND CALL LIGHT WITHIN REACH. ENCOURAGED THE PATIENT TO CALL IF HE HAS NEEDS. WILL CONTINUE TO MONITOR.
[2019-01-27 19:44] VITALS: BP 119/68
[2019-01-28 00:28] VITALS: BP 121/80
[2019-01-28 04:00] VITALS: BP 129/79
[2019-01-28 07:25] LABS: BASOPHILS 0.5 % (0-2); EOSINOPHILS 4.1 % (0-7); HEMATOCRIT 38.6 % (42.0-54.0); IMMATURE GRANULOCYTES 0.3 % (0-5); LYMPHOCYTES 16.5 % (15-50); MCH 29.3 pg (26.0-34.0); MCHC 33.7 g/dL (31.0-37.0); MCV 86.9 fL (80.0-100.0); MEAN PLATELET VOLUME 11.4 fL (7.4-10.4); MONOCYTES 15.9 % (2-11); NEUTROPHILS 62.7 % (40-80); PLATELET COUNT 71 10x3/uL (130-400); RBC 4.44 10x6/uL (4.20-6.10); RDW 15.8 % (11.5-14.5); WBC 3.6 10x3/uL (4.8-10.8)
[2019-01-28 07:56] VITALS: BP 133/83
[2019-01-28 08:03] LABS: PLATELET ESTIMATE DECREASED
[2019-01-28 08:47] LABS: ALBUMIN 3.6 g/dL (3.4-5.0); ALKALINE PHOSPHATASE 113 U/L (46-116); ALT (SGPT) 28 U/L (10-68); BILIRUBIN - TOTAL 0.66 mg/dL (0.2-1.3); CALC OSMOLALITY 280 mosm/kg (275-300); CALCIUM 9.2 mg/dL (8.5-10.1); CARBON DIOXIDE 27.7 mmol/L (21.0-32.0); CHLORIDE - SERUM 102 mmol/L (98-107); CREATININE - SERUM 0.9 mg/dL (0.6-1.3); GLUCOSE 139 mg/dL (74-106); POTASSIUM - SERUM 4.1 mmol/L (3.5-5.1); PROTEIN - SERUM 7.2 g/dL (6.4-8.2); SODIUM 138 mmol/L (136-145); UREA NITROGEN 22 mg/dL (7-18); eGFR NON AFRICAN AMERICAN > 90 mL/min (90-120)
[2019-01-28] MEDS ORDERED: ALDACTONE100 MG PO (09:27)
[2019-01-28] MEDS ORDERED: CHRONULAC30 ML PO (09:29)
[2019-01-28] MEDS ORDERED: ZOFRAN4 MG PO (09:29)
--- NOTE | 2019-01-28 09:57 | NUR ---
PIV REMOVED IN ANTICIPATION OF DC PER ORDERS.
--- NOTE | 2019-01-28 10:58 | NUR ---
NURSE WENT OVER DC INSTRUCTIONS, PATIENT STATED HE UNDERSTANDS INSTRUCTIONS, [facility] IS NOT OPEN TODAY, A COPY OF NEED Rx PLACED AT [facility] TO CALL IN TOMORROW. PATIENT TAKEN TO MAIN ENTRANCE VIA WC. NO DISTRESS NOTED.
--- NOTE | 2019-01-28 19:39 | MORECARE ---
CASE MANAGEMENT DISCHARGE SUMMARY PATIENT: AIXA LEGGETT JR UNIT: [id number] ADM DATE: 01/25/19 AGE: 63 : 59 SEX: M ROOM/BED: D.1205 AUTHOR: DEMETRICE MORRISON PHYSICIAN: REFERRING PHYSICIAN: SULEMA GARRISON MD DATE OF SERVICE: 01/28/19 Discharge Plan Patient Name: AIXA LEGGETT Facility: [facility]:[place] : 1955 Planned Disposition: Anticipated Discharge Date: Discharge Date: 01/28/2019 Expected LOS: Initial Reviewer: [email or web address] Initial Review Date: 01/25/2019 Generated: 01/28/19 8:38 pm Patient Name: AIXA LEGGETT Page [id number] at 1937 All edits/amendments must be made on the electronic document DICTATION DATE: 01/28/191937 MANAGER OF GLOBAL: BOBO 01/28/191937 RPT#: [id number] DC DATE:01/28/19 STATUS: DIS IN [facility] [address] [facility] [place] [address] END OF REPORT
== END 2019-01-28 11:07 | disposition home or self-care (01) | DRG 433 ==
LOC: D.M3 08:47
PROVIDERS: Emergency Medicine; Internal Medicine Gastroenterology; ADMIT Legal Medicine; ATTEND Legal Medicine
DX: K74.60 Unspecified cirrhosis of liver (principal); R18.8 Other ascites; B19.20 Unspecified viral hepatitis C without hepatic coma; Z86.73 Personal history of transient ischemic attack (TIA), and cerebral infarction without residual deficits; I10 Essential (primary) hypertension; F32.9 Major depressive disorder, single episode, unspecified; F41.9 Anxiety disorder, unspecified

== ENCOUNTER → 2019-02-01 12:06 | Outpatient (CLI) | payer BC, MEDICARE ==
[2019-01-26 11:44] VITALS: BMI 26.1
[~2019-02-01 12:06] MED LIST changes: +ALDACTONE100 MG PO; +OMEPRAZOLE20 M1 PO; +ZOFRAN4 MG PO
== END | disposition home or self-care (01) ==
LOC: D.RAD 12:06
PROVIDERS: ATTEND Emergency Medicine
DX: M25.511 Pain in right shoulder (principal)

== ENCOUNTER → 2019-02-16 11:17 | Outpatient (CLI) | payer BC, MEDICARE ==
[2019-01-26 11:44] VITALS: BMI 26.1
== END | disposition home or self-care (01) ==
LOC: D.LAB 11:17
PROVIDERS: ATTEND Internal Medicine Gastroenterology
DX: K72.90 Hepatic failure, unspecified without coma (principal); R10.819 Abdominal tenderness, unspecified site; K74.69 Other cirrhosis of liver

== ENCOUNTER 2019-07-04 06:01 | Day surgery (SDC) | payer BC, MEDICARE ==
[~2019-07-04] VITALS: Ht 172.7 cm; Wt 72.7 kg
[2019-07-04 06:28] LABS: HEMATOCRIT 40.6 % (42.0-54.0); HEMOGLOBIN 13.1 g/dL (13.5-17.5); MCH 29.6 pg (26.0-34.0); MCHC 32.3 g/dL (31.0-37.0); MCV 91.6 fL (80.0-100.0); MEAN PLATELET VOLUME 10.2 fL (7.4-10.4); PLATELET COUNT 57 10x3/uL (130-400); RBC 4.43 10x6/uL (4.20-6.10); RDW 15.8 % (11.5-14.5)
[2019-07-04 06:39] LABS: ALBUMIN 3.6 g/dL (3.4-5.0); ALKALINE PHOSPHATASE 101 U/L (46-116); ALT (SGPT) 31 U/L (10-68); BILIRUBIN - TOTAL 0.56 mg/dL (0.2-1.3); CALC OSMOLALITY 288 mosm/kg (275-300); CALCIUM 8.7 mg/dL (8.5-10.1); CARBON DIOXIDE 30.7 mmol/L (21.0-32.0); CHLORIDE - SERUM 106 mmol/L (98-107); CREATININE - SERUM 0.9 mg/dL (0.6-1.3); GLUCOSE 123 mg/dL (74-106); POTASSIUM - SERUM 4.1 mmol/L (3.5-5.1); PROTEIN - SERUM 7.5 g/dL (6.4-8.2); SODIUM 143 mmol/L (136-145); UREA NITROGEN 20 mg/dL (7-18); eGFR NON AFRICAN AMERICAN > 90 mL/min (90-120)
[2019-07-04 06:40] LABS: APTT 27.6 SECONDS (22.8-39.4); INR 1.11 (0.85-1.17); PROTIME 13.8 SECONDS (11.6-15.0)
[2019-07-04] MEDS ORDERED: PROTONIX40 MG PO (07:02)
[2019-07-04] MEDS ORDERED: PEPCID AC20 MG PO (07:03)
[2019-07-04] MEDS ORDERED: TRAZODONE HCL150 MG PO (07:04)
[2019-07-04 07:18] VITALS: Ht 172.7 cm; Wt 72.7 kg
--- NOTE | 2019-07-04 09:21 | NUR ---
DR. KAY NOTIFIED AND REVIEWED PT'S BEHAVIOR AND ASSESSMENT RESULTS. PT IS A LOW RISK PER DR. KAY. DR. KAY STATED TO GIVE RESOURCES TO PT AT TIME OF DISCHARGE. NO FURTHER ORDERS AT THIS TIME. RESOURCES REVIEWED WITH PT AND HE VERBALIZED UNDERSTANDING.
[2019-07-04 10:03] LABS: PLATELET ESTIMATE DECREASED
--- NOTE | 2019-07-04 15:35 | OP ---
PATIENT NAME: AIXA LEGGETT JR MEDICAL RECORD: [id number] :[birth year] LOCATION:[facility] ADMISSION DATE: SURGEON: ALLEN TRISTAN DO DATE OF OPERATION: 07/04/2019 PROCEDURE: EGD. INDICATIONS FOR PROCEDURE: Generalized abdominal tenderness, dysphagia, history of esophageal varices, nausea. SCOPE: Olympus video gastroscope. MEDICATIONS: Propofol 150 mg IV per anesthesia. ESTIMATED BLOOD LOSS: None. COMPLICATIONS: None. FINDINGS: Informed consent was given. The patient was made comfortable with the above medication. After reaching an adequate level of sedation by slow IV push, the patient was placed on his left side. The endoscope was advanced under direct visualization through the mouth to the second portion of the duodenum with ease. The upper and middle esophagus appeared normal. In the distal esophagus, there were grade I to grade II esophageal varices without bleeding stigmata. There was evidence of prior banding in the form of scars. There were no strictures, rings, or other anatomical abnormalities to easily explain the patient's dysphagia symptoms. At the GE junction, there were minor changes consistent with LA class A reflux-induced esophagitis. The endoscope was advanced beyond the GE junction into the stomach and retroflexed to view the cardia and fundus. There was no hiatal hernia. There were no gastric varices noted in the fundus. Throughout the entire stomach, there was some congestion and edema consistent with mild portal hypertensive gastropathy. The endoscope was advanced beyond the pylorus into the duodenum, which appeared normal to the second portion. The endoscope was withdrawn from the patient. The patient tolerated the procedure well and there were no complications. IMPRESSION: 1. Grade I to grade II esophageal varices without bleeding stigmata. No bands were placed today. 2. LA class A reflux-induced esophagitis. 3. Mild portal hypertensive gastropathy. PLAN AND RECOMMENDATIONS: 1. Discharge home when recovery parameters are met. 2. GERD diet and reflux precautions. 3. We will increase the patient's antacid therapy by increasing his current omeprazole dosing to 40 mg daily and adding as needed [id number] Pepcid 20-40 mg at bedtime. 4. Follow up in GI clinic in 1 month. 5. If continued dysphagia, we will consider barium esophagram. 6. Repeat EGD in 1 year for variceal surveillance. TRANSINT:[id number] Voice Confirmation ID: [id number] DOCUMENT ID: [id number] OPERATIVE REPORT [id number] AIXA LEGGETT JR, NATHAN A DO at 1535 CC: [id number] DICTATION DATE: 07/04/19819 MED ADMIN: 07/04/1934 [facility] 07/04/19 [place] [id number] [place] [id number]
== END 2019-07-04 09:21 | disposition home or self-care (01) ==
LOC: D.OPS 06:01
PROVIDERS: Anesthesiology; ATTEND Internal Medicine Gastroenterology
DX: I85.00 Esophageal varices without bleeding (principal); K21.0 Gastro-esophageal reflux disease with esophagitis; K76.6 Portal hypertension; K31.89 Other diseases of stomach and duodenum

== ENCOUNTER → 2019-08-02 10:49 | Outpatient (CLI) | payer BC, MEDICARE ==
[2019-07-04 07:18] VITALS: BMI 24.3
[~2019-08-02 10:49] MED LIST changes: +PEPCID AC20 MG PO; +PROTONIX40 MG PO; +TRAZODONE HCL150 MG PO
[2019-08-02 11:11] LABS: BASOPHILS 0.3 % (0-2); EOSINOPHILS 3.1 % (0-7); HEMOGLOBIN 13.3 g/dL (13.5-17.5); IMMATURE GRANULOCYTES 0.6 % (0-5); LYMPHOCYTES 13.3 % (15-50); MCH 29.1 pg (26.0-34.0); MCHC 32.4 g/dL (31.0-37.0); MCV 89.7 fL (80.0-100.0); MEAN PLATELET VOLUME 9.9 fL (7.4-10.4); MONOCYTES 9.1 % (2-11); NEUTROPHILS 73.6 % (40-80); PLATELET COUNT 64 10x3/uL (130-400); RBC 4.57 10x6/uL (4.20-6.10); RDW 15.2 % (11.5-14.5); WBC 3.5 10x3/uL (4.8-10.8)
[2019-08-02 11:22] LABS: INR 1.12 (0.85-1.17); PROTIME 13.9 SECONDS (11.6-15.0)
[2019-08-02 11:26] LABS: CALC OSMOLALITY 280 mosm/kg (275-300); CALCIUM 8.6 mg/dL (8.5-10.1); CARBON DIOXIDE 29.3 mmol/L (21.0-32.0); CHLORIDE - SERUM 104 mmol/L (98-107); GLUCOSE 129 mg/dL (74-106); POTASSIUM - SERUM 4.3 mmol/L (3.5-5.1); SODIUM 138 mmol/L (136-145); UREA NITROGEN 22 mg/dL (7-18); eGFR NON AFRICAN AMERICAN 81 mL/min (90-120)
[2019-08-02 12:05] LABS: ANISOCYTOSIS OCC; PLATELET ESTIMATE DECREASED; ROULEAUX OCC
== END | disposition home or self-care (01) ==
LOC: D.LAB 10:49 → D.US 11:30
PROVIDERS: ATTEND Internal Medicine Gastroenterology
DX: K74.60 Unspecified cirrhosis of liver (principal)